=== PATIENT | male | born 1965 | race Caucasian/White ===

== ENCOUNTER 2024-10-30 10:00 | Outpatient (RCR) | payer MEDICAID, SELFPAY ==
--- NOTE | 2024-10-15 14:15 | PT.OIERPT ---
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 About 1.5 yrs ago he got Osteomyelitis discitis at the L2-L3 level and was at [facility] for 6 weeks. Today he is ambulating with SPC around the house and limited community distances. Increased back pain with sitting and bending and most trunk movements like twisting. PMH: L TSA, R RICHARD, HTN Imaging: CT and MRI Osteomyelitis discitis at the L2-L3 level is confirmed Pt goal: to get a back brace Objective: Trunk ArOM: ? B SB 30% of normal with pain ? Extension: 10% with pain around L4-5, L5-S1 ? Flexion: 10% of normal with LBP ? B rotation: 50% with pain ? LE strength: Quads: 3+/5 HS: 3+/5 ? TTP: moderate paraspinals L5-S1 ? Neuro: R SLR: positive Assessment: Pt presents with very limited trunk ROM and LBP consistent with L2-3 bone on bone secondary to osteomyelitis discitis, lumbar DDD with radiculopathy. Pt will likely have more pain with skilled therapy and has poor/fair rehab potential to meet goals but he may get a little more LE strength and learn HEP. Short Term and Customer Service Officer Goals ? 1. Ind with HEP ? 2. Improved sitting/standing tolerance to 30 minutes with <=4/10 LBP ? 3. Improved B LE strength to 4-/5 Quads and HS 4. Improved HH chore tolerance to at least 30 minutes with <=3/10 LBP and no ?increase in LE ssx Treatment Plan 1. Manual therapy ? 2. Therex ? 3. Modalities as indicated, moist heat, ice, estim, mechanical traction Frequency and Duration: 1-2x a week for up to 36 visits, he won't likely need or tolerate that many though Certification Dates: 10/15/24 to 01/14/25 Procedure Charges OP PT Eval Mod Complex 30 minutes: Yes
--- NOTE | 2024-10-28 18:36 | PT.ODAYNRPT ---
PT Outpatient Daily Note OP Daily Note Outpatient Physical Therapy Treatment Date: 10/28/24 Visit Reasons: Wedge Compression Fracture Subjective: Same as time of evaluation Objective: See F/S for therex Assessment: Pt fatigues due to B LE weakness with most therex and takes seated rest breaks. Plan: Continue per POC Length of Time (minutes) of Treatment: 30 Minutes Procedure Charges Therapeutic Exercise 30 minutes: Yes
--- NOTE | 2024-10-30 11:08 | PT.ODAYNRPT ---
PT Outpatient Daily Note OP Daily Note Outpatient Physical Therapy Treatment Date: 10/30/24 Visit Reasons: Wedge Compression Fracture Subjective: Pt reports he is sore and tired today. Objective: Please see flow sheet for ther ex list. Assessment: Interventions given alternating sitting and standing to maximize pt participation. Plan: Continue with POC. Length of Time (minutes) of Treatment: 30 Minutes Procedure Charges Therapeutic Exercise 30 minutes: Yes
== END 2024-11-02 23:59 | disposition home or self-care (01) ==
LOC: CPTX 10:00
PROVIDERS: PCP Student in an Organized Health Care Education/Training Program; Referring Provider Student in an Organized Health Care Education/Training Program; Visit Provider Student in an Organized Health Care Education/Training Program
DX: M54.50 Low back pain, unspecified (principal); G89.29 Other chronic pain; M41.34 Thoracogenic scoliosis, thoracic region; I10 Essential (primary) hypertension
CPT/HCPCS: 97110; 97162

== ENCOUNTER 2024-12-03 11:30 | Outpatient (RCR) | payer MEDICAID, SELFPAY ==
--- NOTE | 2024-11-10 18:11 | PT.ODAYNRPT ---
PT Outpatient Daily Note OP Daily Note Outpatient Physical Therapy Treatment Date: 11/10/24 Visit Reasons: wedge compression FX Subjective: Feeling low blood sugar today but has been eating granola bars. Objective: See F/S for therex Assessment: Pt fatigues due to B LE weakness with most therex and takes seated rest breaks. Plan: Continue per POC Length of Time (minutes) of Treatment: 30 Minutes Procedure Charges Therapeutic Exercise 30 minutes: Yes
--- NOTE | 2024-11-12 12:59 | PT.ODAYNRPT ---
PT Outpatient Daily Note OP Daily Note Outpatient Physical Therapy Treatment Date: 11/12/24 Visit Reasons: wedge compression FX Subjective: Feeling ok to do therapy today Objective: See F/S for therex Assessment: Pt fatigues due to B LE weakness with most therex and takes seated rest breaks. Able to do 20 reps on total gym with LE fatigue. Plan: Continue per POC Length of Time (minutes) of Treatment: 30 Minutes Procedure Charges Therapeutic Exercise 30 minutes: Yes
--- NOTE | 2024-11-26 13:42 | PT.ODAYNRPT ---
PT Outpatient Daily Note OP Daily Note Outpatient Physical Therapy Treatment Date: 11/26/24 Visit Reasons: wedge compression FX Subjective: Pt reports he is having more pain today in LBP and B LE, more than usual. Objective: Please see flow sheet for ther ex list. Assessment: Regressed interventions to accommodate reported pain. Plan: Continue with pOC. Length of Time (minutes) of Treatment: 30 Minutes Procedure Charges Therapeutic Exercise 30 minutes: Yes
--- NOTE | 2024-12-01 11:55 | PT.ODAYNRPT ---
PT Outpatient Daily Note OP Daily Note Outpatient Physical Therapy Treatment Date: 12/01/24 Visit Reasons: wedge compression FX Subjective: Pt reports he is hurting today. Objective: Please see flow sheet for ther ex list. Assessment: Interventions given alternating sitting and standing to maximize pt participation. Plan: Continue with POC. Length of Time (minutes) of Treatment: 30 Minutes Procedure Charges Therapeutic Exercise 30 minutes: Yes
--- NOTE | 2024-12-03 15:41 | PT.ODAYNRPT ---
PT Outpatient Daily Note OP Daily Note Outpatient Physical Therapy Treatment Date: 12/03/24 Visit Reasons: wedge compression FX Subjective: Feeling like his legs are stronger since starting therapy. Objective: See F/S for therex Assessment: Pt fatigues due to B LE weakness with most therex and takes seated rest breaks. Able to do 20 reps on total gym with LE fatigue. Plan: Continue per POC Length of Time (minutes) of Treatment: 30 Minutes Procedure Charges Therapeutic Exercise 30 minutes: Yes
== END 2024-12-03 23:59 | disposition home or self-care (01) ==
LOC: CPTX 11:30
PROVIDERS: PCP Student in an Organized Health Care Education/Training Program; Referring Provider Student in an Organized Health Care Education/Training Program; Visit Provider Student in an Organized Health Care Education/Training Program
DX: M54.50 Low back pain, unspecified (principal); G89.29 Other chronic pain; M41.34 Thoracogenic scoliosis, thoracic region; I10 Essential (primary) hypertension
CPT/HCPCS: 97110

== ENCOUNTER 2024-12-31 13:30 | Outpatient (RCR) | payer MEDICAID, SELFPAY ==
--- NOTE | 2024-12-08 12:43 | PT.ODAYNRPT ---
PT Outpatient Daily Note OP Daily Note Outpatient Physical Therapy Treatment Date: 12/08/24 Visit Reasons: wedge compression FX Subjective: Feeling like his legs are stronger since starting therapy. Objective: See F/S for therex Assessment: Pt fatigues due to B LE weakness with most therex and takes seated rest breaks. Plan: Continue per POC Length of Time (minutes) of Treatment: 30 Minutes Procedure Charges Therapeutic Exercise 30 minutes: Yes
--- NOTE | 2024-12-29 14:23 | PT.ODAYNRPT ---
PT Outpatient Daily Note OP Daily Note Outpatient Physical Therapy Treatment Date: 12/29/24 Visit Reasons: wedge compression FX Subjective: Feeling like his legs are stronger since starting therapy. Objective: See F/S for therex Assessment: Pt fatigues due to B LE weakness with most therex and takes seated rest breaks. Plan: Continue per POC Length of Time (minutes) of Treatment: 30 Minutes Procedure Charges Therapeutic Exercise 30 minutes: Yes
--- NOTE | 2024-12-31 14:21 | PT.ODAYNRPT ---
PT Outpatient Daily Note OP Daily Note Outpatient Physical Therapy Treatment Date: 12/31/24 Visit Reasons: wedge compression FX Subjective: Denies LE pain, and motivated to continue strengthening with therapy Objective: See F/S for therex Assessment: Pt tolerated therex with with no complaints. Requires seated rest breaks due to fatigue and minimal verbal cues to correct posture, able to self correct. Plan: Continue with POC Length of Time (minutes) of Treatment: 30 Minutes Procedure Charges Therapeutic Exercise 30 minutes: Yes
== END 2025-01-03 23:59 | disposition home or self-care (01) ==
LOC: CPTX 13:30
PROVIDERS: PCP Student in an Organized Health Care Education/Training Program; Referring Provider Student in an Organized Health Care Education/Training Program; Visit Provider Student in an Organized Health Care Education/Training Program
DX: M54.50 Low back pain, unspecified (principal); M41.34 Thoracogenic scoliosis, thoracic region; G89.29 Other chronic pain; R53.1 Weakness; I10 Essential (primary) hypertension
CPT/HCPCS: 97110

== ENCOUNTER 2025-01-20 15:30 | Outpatient (RCR) | payer MEDICAID, SELFPAY ==
--- NOTE | 2025-01-12 15:40 | PT.ODAYNRPT ---
PT Outpatient Daily Note OP Daily Note Outpatient Physical Therapy Treatment Date: 01/12/25 Visit Reasons: WEDGE COMPRESSION FX Subjective: Pt came in today with high LBP, c/o 8/10 pain. Pt does not recall doing anything different or strenuous. Objective: Please see flow sheet for ther ex list. Assessment: Pt demonstrates poor activity tolerance, c/o high pain limiting participation. Attempted applying MHP to lumbar region pt has poor tolerance with laying in supine, to attempt in sitting for future sessions. Plan: Continue with POC. Length of Time (minutes) of Treatment: 30 Minutes Procedure Charges Therapeutic Exercise 30 minutes: Yes
--- NOTE | 2025-01-14 15:08 | PT.ODAYNRPT ---
PT Outpatient Daily Note OP Daily Note Outpatient Physical Therapy Treatment Date: 01/14/25 Visit Reasons: WEDGE COMPRESSION FX Subjective: Pt reports LBP is more mild today compared to last PT session. Pt mentioned that he has been trying to cut back on his pain meds and so has his pain management doctor. Pt shared that he came prepared today, took pain meds. Objective: Please see flow sheet for ther ex list. Assessment: Pt presents in clinic today with decrease pain allowing for intervention progression. Verbal cues for pt to sit more erect for rows exercise, pt complied. Plan: Continue with POC. Length of Time (minutes) of Treatment: 30 Minutes Procedure Charges Therapeutic Exercise 30 minutes: Yes
--- NOTE | 2025-01-20 17:12 | PT.ODS1RPT ---
PT OP Progress/Discharge Note Date of Service: 01/20/25 Progress Note/DC Note Progress Note/Discharge Note: Progress Note Patient Information Visit Reasons: WEDGE COMPRESSION FX Service Continue Service or Discharge: Continue Service Discharge Date: 01/20/25 Status Subjective: Pt reports improved LE strength since starting therapy but continued difficulty with standing and sitting >5 mins. Objective: B LE strength: Quads: 4-/5 HS: 4-/5 Assessment: Pt has attended the evaluation and 11 Rx sessions with slow progress with functional therapy goals due to continued LBP. He has met the goal of B LE strength to 4-/5 but sitting and standing tolerances are still limited to <10 mins by LBP. This will not likely improve due to the L2-3 disk that is bone on bone. The authorization expires on 02/14 and he may benefit from continued therapy until then. Plan: The POC and we need provider's signature to extend until 02/14/25 on this progress note. Procedure Charges OP PT Eval Mod Complex 30 minutes: Yes
--- NOTE | 2025-02-16 14:02 | PT.ODS1RPT ---
PT OP Progress/Discharge Note Date of Service: 02/16/25 Progress Note/DC Note Progress Note/Discharge Note: DC Note Patient Information Visit Reasons: WEDGE COMPRESSION FX Service Continue Service or Discharge: Discharge Status Subjective: Pt called to say his insurance changed Objective: See last progress note. No Rx no charges today Assessment: Pt attended the eval and 11 Rx sessions and then changed insurance so we will have to D/C this chart and start again with the new insurance. Plan: D/C
== END 2025-02-02 23:59 | disposition home or self-care (01) ==
LOC: CPTX 15:30
PROVIDERS: PCP Student in an Organized Health Care Education/Training Program; Referring Provider Student in an Organized Health Care Education/Training Program; Visit Provider Student in an Organized Health Care Education/Training Program
DX: M54.50 Low back pain, unspecified (principal); R53.1 Weakness; M41.34 Thoracogenic scoliosis, thoracic region; I10 Essential (primary) hypertension
CPT/HCPCS: 97110; 97162

== ENCOUNTER 2025-02-23 12:45 | Outpatient (RCR) | payer MEDICAID, SELFPAY ==
--- NOTE | 2025-02-23 13:09 | PT.OIERPT ---
PT OP Initial Eval Patient Information Outpatient Physical Therapy Treatment Date: 02/23/25 Visit Reasons: low back pain Medical Diagnosis: M54.50 Start of Care: 02/23/25 Date of Onset: 2022 Smoking Status Smoking Status: Former smoker Years smoked: 25 Are you interested in quitting?: No Would you like additional Smoking Cessation Counseling?: No Initial Assessment Subjective: Pt is 59 yr old male with chronic LBP since falling off a roof in 1999. About 1.5 yrs ago he got Osteomyelitis discitis at the L2-L3 level and was at [facility] for 6 weeks. Today he is ambulating with SPC around the house and limited community distances. Increased back pain with sitting and bending and most trunk movements like twisting. He reports B LE numbness and weakness. PMH: L TSA, R RICHARD, HTN Imaging: CT and MRI Osteomyelitis discitis at the L2-L3 level is confirmed Pt goal: to get a back brace Objective: Trunk ArOM: ? B SB 30% of normal with pain ? Extension: 10% with pain around L4-5, L5-S1 ? Flexion: 10% of normal with LBP ? B rotation: 50% with pain ? LE strength: Quads: 3/5 HS: 3/5 ? TTP: moderate/high paraspinals L5-S1 ? Neuro: R SLR: positive Assessment: Pt presents with very limited trunk ROM and LBP consistent with L2-3 bone on bone secondary to osteomyelitis discitis, lumbar DDD with radiculopathy and B LE weakness which is more pronounced than last therapy evaluation. He made limited progress with 12 visits of therapy recently and he has poor rehab potential to meet goals. PT recommends orthopedic evaluation and pain management. Eval followed by HEP printout. Short Term and Senior Applications Architect Goals Eval and D/C Treatment Plan Eval and D/C Frequency and Duration: Eval only Certification Dates: 02/23/25 to 10/22/25 Procedure Charges OP PT Eval Mod Complex 30 minutes: Yes
== END 2025-03-05 23:59 | disposition home or self-care (01) ==
LOC: CPTX 12:45
DX: M54.50 Low back pain, unspecified (principal); G89.29 Other chronic pain; I10 Essential (primary) hypertension
CPT/HCPCS: 97162